=== PATIENT | male | born 1950 | race Caucasian/White ===

== ENCOUNTER → 2018-05-23 | Outpatient (CLI) | payer MEDICARE, OTHER ==
[~2018-05-23] MED LIST: ACHD5005 PO; ANAS1TAB7 PO; CARV6.252 PO; CATHETER FLUSH 10 ML SYR IV PRN; CINN500C2 PO; DIATRIZOATE MEGLUM/SODIUM 37% 120 ML (GASTROGRAFIN) PO ONE; GLUT500C6 PO; HOLD METFORMIN - RECEIVED CONTRAST 20 ML VIAL IV SCH; IOHEXOL 350 MG/ML 100 ML (OMNIPAQUE 350) VIAL IV ONE; M-171CAP PO; MILK140C PO; NIAC500T24 PO; OMEG10005 PO; PROM25TA14 PO; SAFF1000 PO; TADA20TA PO; TEMA30CA PO; TEST100V8 IM; THYR65TA5 PO; VITA-37 PO
[2018-05-23 09:39] LABS: CREATININE SERUM 1.35 MG/DL (0.60-1.30)
--- NOTE | 2018-05-23 11:06 | Diagnostic Imaging Report ---
PROCEDURE: CT abdomen with contrast only. TECHNIQUE: Multiple contiguous axial images were obtained through the abdomen after the administration of intravenous contrast. Auto Exposure Controls were utilized during the CT exam to meet ALARA standards for radiation dose reduction. INDICATION: Ventral hernia, abdominal pain The previous CT abdomen exam of 04/18/2015 noted bilateral nephrolithiasis but failed to show any sign of obstruction of either collecting system. On this study, there is only a 5 MM nonobstructive calculus in the inferior pole of the right kidney. Both kidneys do show excretion of the contrast and there is no sign of obstruction of either collecting system. There does appear to be a small 1 CM area of low density along the lateral aspect of the left kidney. This was present on the prior study and does not appear to have changed significantly. I suspect that this is a small cyst. The liver, spleen, pancreas, adrenals, aorta and inferior vena cava are unremarkable for an acute abnormality. As noted on the prior exam the gallbladder is surgically absent. The stomach is filled with oral contrast and consequently difficult to assess. There is no abdominal mass or free fluid collection noted. The appendix was partially visualized and does not seem to be abnormally thickened. The previous exam failed to show any sign of a ventral hernia. There was some distortion of the subcutaneous fat in the retro-umbilical region and there is a slight bulge of the mesenteric fat towards the umbilicus. Those findings are again evident on this study and no different. No new anterior abdominal wall hernia has developed and there is no incarceration or obstruction of the bowel. The lung bases are clear. The bone windows are unremarkable for a fracture or for a destructive lesion. IMPRESSION: 1. There is no acute abnormality of the abdomen or pelvis. 2. There is a small nonobstructive calculus within the inferior pole of the right kidney. There is no evidence for obstruction of either collecting system. 3. There is no sign of a ventral wall hernia. Dictated by: Dictated on workstation # [id number]
== END ==
LOC: RAD 09:00
PROVIDERS: ATTEND Surgery
DX: N20.0 Calculus of kidney (principal); Z90.49 Acquired absence of other specified parts of digestive tract
CPT/HCPCS: 36415; 74160; 82565; 84520

== ENCOUNTER 2019-03-24 13:24 | Outpatient (RCR) | payer MEDICARE, OTHER ==
[~2019-03-24 13:24] MED LIST changes: -CATHETER FLUSH 10 ML SYR IV PRN; -DIATRIZOATE MEGLUM/SODIUM 37% 120 ML (GASTROGRAFIN) PO ONE; -HOLD METFORMIN - RECEIVED CONTRAST 20 ML VIAL IV SCH; -IOHEXOL 350 MG/ML 100 ML (OMNIPAQUE 350) VIAL IV ONE
[2019-03-24 14:17] LABS: BASOPHILS % (AUTO) 0 % (0-10); EOSINOPHILS # (AUTO) 0.2 10^3/uL (0.0-0.3); EOSINOPHILS % (AUTO) 3 % (0-10); HEMATOCRIT 46 % (40-54); HEMOGLOBIN 14.6 G/DL (13.3-17.7); LYMPHOCYTES # (AUTO) 1.3 X 10^3 (1.0-4.0); LYMPHOCYTES % (AUTO) 24 % (12-44); MEAN CORPUSCULAR HEMOGLOBIN 30 PG (25-34); MEAN CORPUSCULAR HGB CONC 32 G/DL (32-36); MEAN CORPUSCULAR VOLUME 95 FL (80-99); MEAN PLATELET VOLUME 9.7 FL (7.4-10.4); MONOCYTES % (AUTO) 18 % (0-12); NEUTROPHILS % (AUTO) 54 % (42-75); PLATELET COUNT 242 10^3/uL (130-400); RED CELL DISTRIBUTION WIDTH 14.9 % (10.0-14.5); WHITE BLOOD COUNT 5.5 10^3/uL (4.3-11.0)
[2019-03-24 14:40] LABS: ALBUMIN 4.3 GM/DL (3.2-4.5); BILIRUBIN,TOTAL 0.4 MG/DL (0.1-1.0); CALCIUM 8.9 MG/DL (8.5-10.1); CREATININE SERUM 1.24 MG/DL (0.60-1.30); POTASSIUM 4.2 MMOL/L (3.6-5.0); TOTAL PROTEIN 6.8 GM/DL (6.4-8.2)
== END 2019-06-22 | disposition home or self-care (01) ==
LOC: ONC 13:24
PROVIDERS: ATTEND Internal Medicine Hematology & Oncology
DX: D72.9 Disorder of white blood cells, unspecified (principal); E78.00 Pure hypercholesterolemia, unspecified; I10 Essential (primary) hypertension; E03.9 Hypothyroidism, unspecified; E66.9 Obesity, unspecified
CPT/HCPCS: 80053; 83615; 85025; 99214